=== PATIENT | male | born 1965 | race Caucasian/White ===

== ENCOUNTER → 2017-12-10 | Outpatient (CLI) | payer OTHER ==
[2017-12-10 13:55] LABS: CALCIUM 8.9 mg/dL (8.5-10.1); POTASSIUM 3.7 mmol/L (3.5-5.1)
== END ==
LOC: M.CT 13:05
PROVIDERS: Registered Nurse Diabetes Educator
DX: K51.90 Ulcerative colitis, unspecified, without complications (principal); E13.9 Other specified diabetes mellitus without complications

== ENCOUNTER → 2017-12-24 | Outpatient (CLI) | payer OTHER | LOC: M.ULTRA 16:00 | DX: N28.1 Cyst of kidney, acquired (principal) ==